=== PATIENT | male | born 2000 | race African-American/Black ===

== ENCOUNTER 2024-05-16 13:16 | Emergency (ER) | payer BC, SELFPAY ==
[2024-05-16 13:30] VITALS: BP 131/71; PULSE 86; RESP 20; TEMP 37; O2SAT 99; BMI 30.8
--- NOTE | 2024-05-16 13:34 | ED_ITS ---
HPI - General Adult General Chief complaint: Upper Respiratory Symptoms Stated complaint: throat irritation Time Seen by Provider: 05/16/24 16:08 Source: patient Mode of arrival: ambulatory Limitations: no limitations History of Present Illness ED Provider: POOL HPI narrative: 23 yo male with no PMH notes he has dry throat at night and it bothers him it feels like he has sandpaper he also feels like he has post nasal drip he has had this before but the past several days it has been much worse. MD complaint: dry mouth Onset (ago): week(s) (3+) Location: mouth Radiation: non-radiation Severity: mild Quality: burning Pain Consistency: intermittent Relieving factors: none Exacerbating factors: other (night time) Associated symptoms: other (3 weeks ago injured L ring finger had been wearing splint - has been working out with it in gym but notes he cannot make a fist now fully otherwise it is normal) Treatments prior to arrival: none Related Data Previous Rx's ?Medication ?Instructions ?Recorded cetirizine 10 mg tablet 10 mg PO DAILY PRN allergy 05/16/24 symptoms #30 tabs fluticasone propionate 50 1 spray intranasal DAILY #16 grams 05/16/24 mcg/actuation nasal spray,suspension Allergies Allergy/AdvReac Type Severity Reaction Status Date / Time No Known Allergies Allergy Verified 05/16/24 13:32 Review of Systems Review of Systems: Constitutional : No Fever, No Chills, No Fatigue ENT/Mouth : pos sore throat, No Rhinorrhea Eyes: No Eye Pain, No Swelling, No Redness Cardiovascular : No Chest Pain, No SOB, No Dyspnea on Exertion Respiratory : No Cough, No Sputum Gastrointestinal : No Nausea, No Vomiting, No Diarrhea, No abdominal Pain Genitourinary : No Dysuria, No Urinary Frequency, No Hematuria, Musculoskeletal : pos joint pain, No Myalgias, No Joint Swelling Skin : No Skin Lesions, No rash Neuro : No Weakness, No Numbness, No Dizziness, no Headache All other systems reviewed and are negative ON LICENSE OF [facility] Past Medical History Attestation statement: The following information was validated with the patient. Source: old records reviewed Social History Social History (Updated 05/16/24 @ 16:44 by Rhea Leos DO) Patient Tobacco Use Status: Never used Tobacco Advance Directives: No Advance Directives Information Provided: No Do you have a plan to hurt others: No Plan Physical Exam ED Vital Signs: Vital Signs - 24 hr 05/16/24 13:30 05/16/24 16:25 Temperature 98.6 F 98.6 F Pulse Rate 86 86 Respiratory Rate 20 20 Blood Pressure 131/71 131/71 Pulse Oximetry 99 99 Oxygen Delivery Method Room Air Room Air BMI result Body Mass Index 30.8 Appearance: Alert. Oriented X3. No acute distress. Eyes: Pupils equal, round and reactive to light. ENT: Pharynx normal. no erythema, swelling, exudates Neck: Normal inspection. Neck supple. CVS: Normal heart rate and rhythm. Pulses normal. Respiratory: No respiratory distress. Breath sounds normal. Abdomen: Soft and nontender. Skin: Skin warm and dry. Normal skin color. Extremities: No lower extremity edema. L ring finger on L hand mild swelling on PIP joint he has no pain can flex and extend but when he makes a fist it is not even Neuro: Oriented X 3. No motor deficit. No sensory deficit. CN2-12 intact Course Course Course Narrative: RME: 23-year-old male presents to ED for dry throat and coughing. Patient states he is at [employer] around him has cold. Patient states no chest pain coughing up blood or shortness of breath. SARs strep ordered. Lungs clear. Medical Decision Making Medical Decision Making [facility] Narrative: 23 yo male otherwise healthy here with c/o dry scratchy throat at night as well as post nasal drip. I am going to prescribe him medications for possible allergies. He has no signs of swelling or infection on exam. He also c/o 3 week L ring finger injury no acute pain now will need hand referral Differential Diagnosis Differential Diagnoses: The differential diagnosis associated with the presentation includes URI, allergies, rhinitis Lab Data [facility] Lab Attestation statement: I reviewed the patient's lab results. Labs: Lab Results 05/16/24 Range/Units 15:07 Influenza Type A (PCR) NEGATIVE (Negative) Influenza Type B (PCR) NEGATIVE (Negative) RSV RNA Qual (PCR) NEGATIVE (Negative) SARS-CoV-2 RNA (RT-PCR) NEGATIVE (Negative) S. pyogenes GrpA BRIGID Negative (Negative) Prescription Management I considered prescription management with: Other Discharge Plan Discharge Clinical Impression: Throat dryness Injury of left ring finger Qualifiers: Encounter type: initial encounter Qualified Code(s): S69.92XA - Unspecified injury of left wrist, hand and finger(s), initial encounter Patient Disposition: Home, Self-Care Instructions: Finger Sprain (ED), Allergies (ED) Additional Instructions: negative for COVID, flu, RSV, strep will start with nasal spray and claritin please follow up with hand surgeon here call for next available appointment Prescriptions: New fluticasone propionate 50 mcg/actuation spray,suspension 1 spray intranasal DAILY Qty: 16 1RF Rx Instructions: administer into each nostril cetirizine 10 mg tablet 10 mg PO DAILY PRN (Reason: allergy symptoms) Qty: 30 1RF [place] [facility] [place] Group] Interventions: ED Discharge Assessment Last Done: 05/16/24 16:25 Discharge Date/Time: 05/16/24 16:28 Print Language: Thai
[2024-05-16 15:33] LABS: IDNOW Serial# 58CA691E; Strep A Nucleic Acid Negative (Negative)
[2024-05-16 16:03] LABS: Influenza A PCR NEGATIVE (Negative); Influenza B PCR NEGATIVE (Negative); Resp Syncy Virus RNA Qual PCR NEGATIVE (Negative); SARS COV2 PCR INHOUSE NEGATIVE (Negative)
[2024-05-16 16:25] VITALS: BP 131/71; PULSE 86; RESP 20; TEMP 37; O2SAT 99
--- OUTSIDE RECORDS SUMMARY | 2024-05-16 16:29 | XMS_ITS | Clinical Summary ---
Author Organization [facility] Address [address] [place] [address] Care Team Providers Care Intelligence Senior Sergeant Name Role Phone Bao Domínguez Dhaval DE LA CRUZ Primary Care Provider [phone] Allergies Active Allergy Reactions Criticality Noted Date Comments Apple Juice Itching 05/29/2017 Itching in throat. Peanut-Containing Drug Products 10/09 Itching in throat Tree Extract 10/31/2014 Medications diphenhydrAMINE (BENADRYL) 12.5 mg/5 mL oral elixir Take 25 mg by mouth 4 (four) times daily as needed for Allergies. Active EPINEPHrine 0.3 MG/0.3ML SOAJIndications: Hx of food allergy Inject 0.3 mLs into the muscle as needed. Use as directed 2 each 2 8 Active loratadine (CLARITIN) 10 MG tabletIndication s:Seasonal allergic rhinitis, unspecified trigger 10 mg po qhs 30 tablet 1 9 Active fluticasone (FLONASE) 50 mcg/ACT nasal sprayIndications :Seasonal allergic rhinitis, unspecified trigger 1 spray each nares at bedtime 16 g 2 9 Active ketotifen (ZADITOR) 0.025 % ophthalmic solutionIndicati ons:Seasonal allergic rhinitis, unspecified trigger Place 1 drop into both eyes 2 (two) times daily. 5 mL 9 Active Emtricitabine-Te nofovir DF (TRUVADA) 200-300 mg per tabletIndication s:At risk for sexually transmitted disease due to partner with multiple partners Take 1 tablet by mouth once daily. 90 tablet 9 Active Ibuprofen (ADVIL,MOTRIN) 600 MG tablet Take 1 tablet by mouth every 6 (six) hours as needed for Pain. 30 tablet 4 Active Active Problems Problem Noted Date Diagnosed Date At risk for sexually transmi tted disease due to partner with multiple partners 06/01/2018 Resolved Problems Problem Noted Date Diagnosed Date Resolved Date Hx of lower gastrointestinal bleeding 05/14/2016 07/23/2016 Snoring 06/14/2014 05/29/2017 Immunizations Immunization Administration Dates Next Due DTaP(Infanrix) 1999,1999,1999 Hep A, Ped/adol, 3 Dose 12/16/2008 Hep B / HiB 1999,1999 Hepatitis A 12/08/2007 Hepatitis B 1999 Hib, Nos 1999 Hpv Nonavalent 01/19/2016,02/09/2015,10/31/2014 IPV 12/19/2003, 1,1999, 000 Influenza-split 01/18/2010,12/16/2008 MMR 12/19/2003,07/21/2000 Meningococcal Conj MCV4P (MENACTRA) 01/19/2016,0 06/14/2014 PPD Test 06/14/2014 Pneumococcal Conjugate 10/21/2000,02/25/2000 Tdap 01/01/2016,10/06/2010 Varicella(Varivax)SQ 03/18/2006,02/14/2005,07/21 Family History Medical History Relation Name Comments Heart disease Brother No Known Problem Father Asthma Maternal Grandfather Hypertension Maternal Grandmother Asthma Mother Hypertension Mother Asthma Paternal Grandmother Asthma Paternal Uncle Hypertension Sister Relation Name Status Comments Brother Father Maternal Grandfather Maternal Grandmother Mother Paternal Grandmother Paternal Uncle Sister Social History Tobacco Use Types Packs/Day Years Used Date Smoking Tobacco: Never Smokeless Tobacco: Never Tobacco Cessation:Counseling Given: No Alcohol Use Standard Drinks/Week Comments No 0 (1 standard drink = 0.6 oz pur e alcohol) Sex and Gender Information Value Date Recorded Sex Assigned at Not on file Legal Sex Male 1:43 AM EDT Gender Identity Not on file Sexual Orientation Not on file Last Filed Vital Signs Vital Sign Reading Time Taken Comments Blood Pressure 118/80 06/01/2018 5:47 PM EDT Pulse 76 06/01/2018 5:47 PM EDT Temperature 36.8 ??C (98.2 ??F) 06/01/2018 5:47 PM ED T Respiratory Rate 18 06/01/2018 5:47 PM EDT Oxygen Saturation 100% 04/03/2018 9:31 AM EST Inhaled Oxygen Concentration - - Weight 84.8 kg (187 lb) 06/01/2018 5:47 PM EDT Height 182.9 cm (6') 06/01/2018 5:47 PM EDT Body Mass Index 25.36 06/01/2018 5:47 PM EDT Plan of Treatment Health Maintenance Due Date Last Done Comments Asthma Action Plan 1999 Pt Self Management Plan Belkis caldera Review 06/22/2009 Health Related Social Needs 06/22/2017 DEPRESSION SCREENING (PHQ-2) 04/09/2019, 04/03/2018, 02/26/2018, Additional history exists Annual HIV Screening 06/02/2019 06/01/2018, 04/03/2018, 02/26/2018, Additional history exists COVID-19 Vaccine (3 2023-2 5 season) 2023 02/19/2022, 12/24/2021 Influenza Vaccine (#1) 2023 8 (Declined), 01/18/2010, 12/16/2008 DTaP,Tdap,and Td Vaccines (6 - Td or Tdap) 12/31/2025 01/01/2016, 10/06/2010, 1999, Additional history exists HPV Vaccines Completed 01/19/2016, 05/2014, 10/31/2014 Hepatitis C Testing Completed 06/01/2018, 9 Procedures Procedure Name Priority Date/Time Associated Diagnosis Comments HIV 1/2 AG/AB,4TH GEN RFL Routine 06/01/2018 6:24 PM EDT Unprotected sex HEPATITIS C Routine 06/01/2018 6:24 PM EDT Unprotected sex from Last 3 Months or Most Recently Relevant to Health Maintenance Results * HIV 1/2 AG/AB,4TH GEN RFL (06/01/2018 6:24 PM EDT) HIV AG/AB, 4th Gen Nonreactive Nonreactive [facility] Comment: ? HIV-1 antigen and HIV-1/HIV-2 antibodies were not detected. ? There is no laboratory evidence of HIV infection. ? PLEASE NOTE: This information has been disclosed to you ? from records whose confidentiality may be protected by ? state law. ??If your state requires such protection, then ? the state law prohibits you from making any further ? disclosure of the information without the specific ? written consent of the person to whom it pertains, or as ? otherwise permitted by law. ??A general authorization for ? the release of medical or other information is NOT ? sufficient for this purpose. ? The performance of this assay has not been clinically ? validated in patients less than 2 years old. ? For additional information please refer to ? http://education.dondeEsta™/faq/VMK541. ??(This ? link is being provided for informational/educational ? purposes only.) Urine specimen (specimen) 06/01/2018 6:24 PM EDT 06/02/2018 12:36 AM EDT Narrative Resulting Agency Comment Performing Organization Information: ?Site ID: [id number] ?Name: [facility] ?Address: [place] [address] ?Director: Bob Perez M.D. us Bao Domínguez DO LAB BLOOD ORDERABLES Final Res ult [facility] * Hepatitis C (06/01/2018 6:24 PM EDT) HCV RATIO 0.04 <1.0 [facility] Hepatitis C Ab Non Reactive Non Reactive [facility] Urine specimen (specimen) 06/01/2018 6:24 PM EDT 06/02/2018 12:36 AM EDT Narrative Resulting Agency Comment Performing Organization Information: ?Site ID: [id number] ?Name: [facility] ?Address: [place] [address] ?Director: Bob Perez M.D. us Bao Domínguez DO LAB BLOOD ORDERABLES Final Res ult [facility] from Last 3 Months or Most Recently Relevant to Health Maintenance Care Teams Intelligence Senior Sergeant Relationship Specialty Start Date End Date Bao Domínguez DO [address] [place] [address] PCP - General Family Medicine 04/03/18
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
--- OUTSIDE RECORDS SUMMARY | 2024-05-16 16:29 | XMS_ITS | Clinical Summary ---
Author Organization [facility] Address [address] [place] [address] Phone Care Team Providers Care Shiatsu Therapist Name Role Phone Pcp, Patient Does Not Have A BS Primary Care Pro vider Unavailable Allergies Active Allergy Reactions Criticality Noted Date Comments Apple Itching 11/01/2022 Itching in throat Peanut Itching 11/01/2022 Itching in throat Pineapple Other (See Comments) High 06/30/2020 Medications * This document contains information received from the source organization and may not represent a complete record from that organization. No known medications Active Problems Problem Noted Date Diagnosed Date Mild intermittent asthma without complication Assessment & Plan (11/08/2020 12:45 PM EDT): Asthma is improving with lifestyle modifications. The patient is experiencing no daytime asthma symptoms. He is experiencing no nighttime asthma symptoms. Discussed monitoring symptoms and use of quick-relief medications and contacting us early in the course of exacerbations. Warning signs of respiratory distress were reviewed with the patient. Reduce exposure to inhaled allergens: wash bedding weekly in water > 130'F to kill dust mites. 11/08/20: No excerbation during this inpatient stay. Health care maintenance 11/01/2020 Assessment & Plan (11/08/2020 12:40 PM EDT): Health care Maintenance: Pt with no significant medical issues; -Discussed benefit of optimal wellness. Daily required, nutrition, rest relaxation, adequate nightly sleep, safe sex practice Maintaining personal safety: avoiding fights, tobacco, alcohol and controlled substance abuse. Wellness health check-up aftercare compliance and medication adherence. Metabolic Risk Assessment: BMI 22.85, A1C, 5.8%, Lipid Panel 112/62/43/57 Cannabis use disorder, severe, dependence 2020 At risk for sexually transmi tted disease due to partner with multiple partners 06/01/2018 Assessment & Plan (11/01/2020 2:46 PM EDT): Pt reporting having multiple sex partners,with/without safe sex practice. Plan: Lab: HIV Testing, RPR, Urine STD test Pt Ed: safe sex practice. 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 Social History Tobacco Use Types Packs/Day Years Used Date Smoking Tobacco: Never Smokeless Tobacco: Never Tobacco Cessation:Counseling Given: Not Answered Alcohol Use Standard Drinks/Week Comments Not Currently 0 (1 standard drink = 0.6 oz pur e alcohol) Sex and Gender Information Value Date Recorded Sex Assigned at Male 05/30/2020 9:43 PM EDT Legal Sex Male 11:48 PM EST Gender Identity Male 05/30/2020 9:43 PM EDT Sexual Orientation Not on file Last Filed Vital Signs Vital Sign Reading Time Taken Comments Blood Pressure 130/95 11/01/2022 9:30 PM EDT Pulse 70 11/01/2022 9:30 PM EDT Temperature 36.8 ??C (98.2 ??F) 11/01/2022 9:30 PM ED T Respiratory Rate 19 11/01/2022 9:30 PM EDT Oxygen Saturation 100% 11/01/2022 9:53 PM EDT Inhaled Oxygen Concentration - - Weight 99.8 kg (220 lb) 11/01/2022 9:53 PM EDT Height 182.9 cm (6') 11/01/2022 9:53 PM EDT Body Mass Index 29.84 11/01/2022 9:53 PM EDT Plan of Treatment Health Maintenance Due Date Last Done Comments CHLAMYDIA & GONORRHEA SCREENING 06/02/2019 06/01/2018, 04/03/2018, 02/26/2018, Additional history exists A1C (SCREENING) 11/02/2021 11/02/2020 HIV SCREENING 11/02/2021 11/02/2020 COVID VACCINE ( season) 2023 02/19/2022, 12/24/2021 INFLUENZA VACCINE (#1) 2023 01/18/2010, 2008 TDAP/TD VACCINE 12/31/2025 01/01/2016, 10/06/2010 ZOSTER (SHINGRIX) VACCINE (1 of 2) 06/22/2049 HEPATITIS B VACCINE Completed 1999, 1999, 1999 PNEUMOCOCCAL VACCINE Aged Out 10/21/2000, 02/25/20 00 No longer eligible based on patient's age to complete this topic HUMAN PAPILLOMA VIRUS (HPV) VACCINE Completed 01/19/2016, 02/09/2015, 10/31/2014 HEPATITIS C SCREENING Completed 11/02/2020 , 06/01/2018, 04/03/2018 Procedures Procedure Name Priority Date/Time Associated Diagnosis Comments HEMOGLOBIN A1C Routine 11/02/2020 6:43 AM EDT HEPATITIS C ANTIBODY (SCREENING) Routine 11/02/2020 6:43 AM EDT HIV AG/AB SCREEN BY CMIA Routine 11/02/2020 6:43 AM EDT from Last 3 Months or Most Recently Relevant to Health Maintenance Results * HIV AG/AB Screen By CMIA (11/02/2020 6:43 AM EDT) HIV 1,2 AG/Ab by CMIA Non-React michael Non-React michael 11/02/2020 8:42 AM EDT [facility] Comment: This information has been disclosed to you from confidential records which are protected by state law. Disclosure of this information without patient written consent is a violation of [facility] public health laws 27F and 63.5.6. For more details and exceptions to this requirement of [facility] confidentiality law, please refer to health.sc.gov/diseases/aids/facts/helpfulresources/confidentiality law.htm. Whole blood unit collection (procedure) 11/02/2020 6:43 AM EDT 11/02/2020 7:00 AM EDT Narrative [facility] - 11/02/2020 8:42 AM EDT Specimen collected by: FELICITA PABLO Patient advised HIV testing to be done and did not object->Yes For negative diagnostic results, should this be released to [facility] immediately or delayed 7 days? Positive diagnostics and reflex tests will be delayed 7 days.->Immediate Patient advised HIV testing to be done and did not object->Yes For negative diagnostic results, should this be released to [facility] immediately or delayed 7 days? Positive diagnostics and reflex tests will be delayed 7 days.->Immediate [facility] LAB BLOOD ORDERABLES Final Resul t Performing Organization Address [facility] de Phone Number [facility]-[id number] [address] [place] [phone] * Hepatitis C Antibody (11/02/2020 6:43 AM EDT) Hepatitis C Ab Non-React michael Non-React michael 11/02/2020 7:43 AM EDT [facility] Comment: Results obtained with the Elecsys Anti-HCV assay may not be used interchangeably with values obtained with different manufacturers assay methods. A reactive anti-HCV result does not exclude co-infection by another hepatitis virus. Whole blood unit collection (procedure) 11/02/2020 6:43 AM EDT 11/02/2020 7:00 AM EDT Narrative [facility] - 11/02/2020 7:43 AM EDT Specimen collected by: FELICITA PABLO [facility] LAB BLOOD ORDERABLES Final Resul t Performing Organization Address [facility] de Phone Number [id number] [address] [place] [address] * (ABNORMAL) Hemoglobin A1C (11/02/2020 6:43 AM EDT) Hemoglobin A1C 5.8(H) 4.0 - 5.6 % 11/02/2020 6:05 PM EDT [facility] Comment: Method: Immunoassay ? Reference Range ?4.0-5.6% ? High risk (prediabetic) ?5.7-6.4% ? Diabetic, diagnostic ? >=6.5% ? ADA diabetic treatment goal ? <7.0% The Hemoglobin A1c testing is NGSP-certified. Reference ranges are based upon the 2010 recommendations of the [place] [employer]. ??Interpretation may vary for children and adolescents. Performed at: [facility] [address] [place] [address] ??[phone] Orderable--Hemoglobin X9S-ZUTT Whole blood unit collection (procedure) 11/02/2020 6:43 AM EDT 11/02/2020 7:[address] [facility] - 11/02/2020 6:05 PM EDT Specimen collected by: FELICITA PABLO Cathy Casarez ANP LAB BLOOD ORDERABLES Final Resul t [address] [address] from Last 3 Months or Most Recently Relevant to Health Maintenance Advance Directives For more information, please contact: [phone] (Available ) * Full Code (Latest Code Status on File) Date Activated Date Inactivated Comments 10/30/2020 11:23 PM 11/09/2020 5:48 PM Care Teams Shiatsu Therapist Relationship Specialty Start Date End Date Pcp, Patient Does Not Have A, BS [address] [place] [address] PCP - General Internal Medicine 10/19/20 Additional Source Comments Any HIV related-infromation that has been disclosed to you is from confidential records which are protected by state law. State law prohibits you from making any further disclosure of this HIV-related information without the specific written consent of the person to whom it pertains, or as otherwise permitted by law. Any unauthorized further disclosure in violation of state law may result in a fine or fpc sentence or both. A general authorization for the release of medical or other informationisNOT sufficient authorization for further disclosure.[facility]
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
--- OUTSIDE RECORDS SUMMARY | 2024-05-16 16:30 | XMS_ITS | Patient Health Record ---
Author Organization [facility] Address [address] [place] [address] Care Team Providers Care Brake Shoe Rebuilder Name Role Phone Barbra EISENBERG, Jean-Claude Primary Care Provider Un available Aga Morfin Unavailable [phone] Johnathan Chester Unavailable [phone] Reason For Referral No Information Medications Medication SIG (Take, Route, Fr equency, Duration) Notes Start Date End Date Status OLANZapine 2.5 MG 1 tablet Orally Once a day for 30 days Active Problems Problem Type SNOMED Code ICD Code Onset Dates Problem Status W/U Status Risk Notes Problem Cannabis abuse (55327705) Cannabis abuse (F12.10) Active confirmed Problem Schizophrenia (18715998) Schizophrenia (F20.9) Active confirmed Encounters Encounter Location Date Provider Diagnosis [facility] [place] [phone] 12/16/2023 Johnathan Chester Schizophrenia F20.9 and Cannabis abuse F12.10 [facility] [address] [address] 01/19/2024 Johnathan Chester Schizophrenia F20.9 and Cannabis abuse F12.10 [facility] [place] [phone] 02/11/2024 Johnathan Chester Schizophrenia F20.9 and Cannabis abuse F12.10 [facility] [address] [address] 03/17/2024 Johnathan Chester Schizophrenia F20.9 and Cannabis abuse F12.10 Assessments Encounter Date Diagnosis (ICD Code) Assessment Notes Treatment Notes Treatment Clinical Notes Section Notes 12/16/2023 Cannabis abuse (ICD-10 - F12.10) 12/16/2023 Schizophrenia (ICD-10 - F20.9) 01/19/2024 Schizophrenia (ICD-10 - F20.9) 02/11/2024 Schizophrenia (ICD-10 - F20.9) 03/17/2024 Schizophrenia (ICD-10 - F20.9) 03/17/2024 Cannabis abuse (ICD-10 - F12.10) 02/11/2024 Cannabis abuse (ICD-10 - F12.10) 01/19/2024 Cannabis abuse (ICD-10 - F12.10) Plan Of Treatment No Information Insurance Providers Payer Name Payer Address Payer Phone Subscriber Number Group Number Insured Name Patient Relationship to Insured Coverage Start Date Coverage End Date [employer] Health[employer] Medicaid [address] [address] [place] [address] [id number] LYNDA GARCÍA Self - patient is the insured
== END 2024-05-16 16:28 | disposition home or self-care (01) ==
LOC: HO.ED 16:27
PROVIDERS: Physician Assistant; Emergency Provider Emergency Medicine
DX: R09.82 Postnasal drip (principal); J39.2 Other diseases of pharynx; M79.645 Pain in left finger(s); Z03.818 Encounter for observation for suspected exposure to other biological agents ruled out; R05.9 Cough, unspecified
CPT/HCPCS: 0241U; 87651; 99282; 99283

== ENCOUNTER 2024-05-20 01:18 | Emergency (ER) | payer BC, SELFPAY ==
--- NOTE | ~2024-05-20 | XR_ITS ---
CLINICAL HISTORY: cough 2 view chest x-ray. Comparison: None Findings: No consolidation, pneumothorax, or effusion. Heart size normal. Impression: 1. No acute cardiopulmonary process. No focal pulmonary consolidation. This document has been electronically signed by: Noman Ricardo MD on 05/20/2024 03:34:53
[2024-05-20 01:52] VITALS: BP 126/87; PULSE 83; RESP 18; TEMP 36.9; O2SAT 99; BMI 35.3
[2024-05-20 02:46] LABS: Influenza A PCR NEGATIVE (Negative); Influenza B PCR NEGATIVE (Negative); Resp Syncy Virus RNA Qual PCR NEGATIVE (Negative); SARS COV2 PCR INHOUSE NEGATIVE (Negative)
--- OUTSIDE RECORDS SUMMARY | 2024-05-20 03:01 | XMS_ITS | Clinical Summary ---
Author Organization [facility] Address [address] [place] [place] [address] Care Team Providers Care Steam Pressure Chamber Operator Name Role Phone Bao Domínguez Dhaval DE LA CRUZ Primary Care Provider [phone] Allergies Active Allergy Reactions Criticality Noted Date [...] Review 06/22/2009 Health Related Social Needs 06/22/2017 Pneumococcal Vaccine: Pediat rics (0 to 5 Years) and At-Risk Patients (6 to 49 Years) (1 of 2 - PCV) 06/22/2018 10/21/2000, 02/25/2000 DEPRESSION SCREENING (PHQ-2) 04/09/2019, 04/03/2018, 02/26/2018, Additional history exists Annual HIV Screening 06/02/2019 06/01/2018, 04/03/2018, 02/26/2018, Additional history exists COVID-19 Vaccine (2023-2 5 season) 2023 02/19/2022, 12/24/2021 Influenza Vaccine [...] For additional information please refer to ? http://education.Alo7/faq/OXE311. ??(This ? link is being provided for informational/educational ? purposes only.) Urine specimen (specimen) 06/01/2018 6:24 PM EDT 06/02/2018 12:36 AM EDT Narrative Resulting Agency Comment Performing Organization Information: ?Site ID: TBR ?Name: [facility] ?Address: [place] [address] ?Director: Bob Perez M.D. us Bao Domínguez DO LAB BLOOD ORDERABLES Final Res ult Performing Organization Address City/[facility] Co de Phone Number [facility] * Hepatitis C (06/01/2018 6:24 PM EDT) HCV RATIO 0.04 <1.0 [facility] Hepatitis C Ab Non Reactive Non Reactive [facility] Urine specimen (specimen) 06/01/2018 6:24 PM EDT 06/02/2018 12:36 AM EDT Narrative Resulting Agency Comment Performing Organization Information: ?Site ID: TBR ?Name: [facility] ?Address: [place] [address] ?Director: Bob Perez M.D. us Bao Domínguez DO LAB BLOOD ORDERABLES Final Res ult Performing Organization Address City/[facility] Co de Phone Number [facility] from Last 3 Months or Most Recently Relevant to Health Maintenance Care Teams Steam Pressure Chamber Operator Relationship Specialty Start Date End Date Bao Domínguez DO [address] [place] [address] PCP - General Family Medicine 04/03/18
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
--- OUTSIDE RECORDS SUMMARY | 2024-05-20 03:01 | XMS_ITS | Patient Health Record ---
Author Organization [facility] Special[facility] Facility Address [address] [place] [address] Care Team Providers Care Boxing And Pressing Supervisor Name Role Phone Barbra EISENBERG, Jean-Claude Primary Care Provider Un available Aga Morfin Unavailable [phone] Johnathan Chester Unavailable [phone] Reason For Referral No Information Medications Medication SIG (Take, Route, Fr equency, Duration) Notes Start Date End Date Status OLANZapine 2.5 MG 1 tablet Orally Once a day for 30 days Active Problems Problem Type SNOMED Code ICD Code Onset Dates Problem Status W/U Status Risk Notes Problem Cannabis abuse (94589281) Cannabis abuse (F12.10) Active confirmed Problem Schizophrenia (90804532) Schizophrenia (F20.9) Active confirmed Encounters Encounter Location Date Provider Diagnosis [facility] [place] [phone] 12/16/2023 Johnathan Chester Schizophrenia F20.9 and Cannabis abuse F12.10 [facility] [address] [address] 01/19/2024 Johnathan Chester Schizophrenia F20.9 and Cannabis abuse F12.10 [facility] [place] [phone] 02/11/2024 Johnathan Chester Schizophrenia F20.9 and Cannabis abuse F12.10 [facility] [address] [address] 03/17/2024 Johnathan Chester Schizophrenia F20.9 and Cannabis [...] Date [employer] Medicaid [address] [address] [place] [address] [id number] LYNDA GARCÍA Self - patient is the insured
--- OUTSIDE RECORDS SUMMARY | 2024-05-20 03:01 | XMS_ITS | Clinical Summary ---
Author Organization [facility] Address [address] [place] [address] Phone Care Team Providers Care Waterworks Chief Engineer Name Role Phone Pcp, Patient Does Not [...] michael Non-React michael 11/02/2020 8:42 AM EDT [facility] Comment: This information has been disclosed to you from confidential records which are protected by state law. Disclosure of this information without patient written consent is a violation of [facility] public health laws 27F and 63.5.6. For more details and exceptions to this requirement of [facility] confidentiality law, please refer to health.vt.gov/diseases/aids/facts/helpfulresources/confidentiality law.htm. Whole blood unit collection (procedure) 11/02/2020 6:43 AM EDT 11/02/2020 7:00 AM EDT Narrative [facility] - 11/02/2020 8:42 AM EDT Specimen collected by: FELICITA PABLO Patient advised HIV testing to be done and did not object->Yes For negative diagnostic results, should this be released to [facility] immediately or delayed 7 days? Positive diagnostics and reflex tests will be delayed 7 days.->Immediate Patient advised HIV testing to be done and did not object->Yes For negative diagnostic results, should this be released to [facility] immediately or delayed 7 days? Positive diagnostics and reflex tests will be delayed 7 days.->Immediate [facility] LAB BLOOD ORDERABLES Final Resul t Performing Organization Address [facility] de Phone Number [facility]-[id number] [address] [place] [phone] * Hepatitis C Antibody (11/02/2020 6:43 AM EDT) Hepatitis C Ab Non-React michael Non-React michael 11/02/2020 7:43 AM EDT [facility] Comment: Results obtained with the Elecsys Anti-HCV assay may not be used interchangeably with values obtained with different manufacturers assay methods. A reactive anti-HCV result does not exclude co-infection by another hepatitis virus. Whole blood unit collection (procedure) 11/02/2020 6:43 AM EDT 11/02/2020 7:00 AM EDT Narrative [facility] - 11/02/2020 7:43 AM EDT Specimen collected by: FELICITA PABLO [facility] LAB BLOOD ORDERABLES Final Resul t Performing Organization Address [facility] de Phone Number [id number] [address] [place] [address] * (ABNORMAL) Hemoglobin A1C (11/02/2020 6:43 AM EDT) Hemoglobin A1C 5.8(H) 4.0 - 5.6 % 11/02/2020 6:05 PM EDT [facility] Comment: Method: Immunoassay ? Reference Range ?4.0-5.6% ? High risk (prediabetic) ?5.7-6.4% ? Diabetic, diagnostic ? >=6.5% ? ADA diabetic treatment goal ? <7.0% The Hemoglobin A1c testing is NGSP-certified. Reference ranges are based upon the 2010 recommendations of the [place] [employer]. ??Interpretation may vary for children and adolescents. Performed at: [facility] [address] [place] [address] ??[phone] Orderable--Hemoglobin [id number] Whole blood unit collection (procedure) 11/02/2020 6:43 AM EDT 11/02/2020 7:02 AM EDT Narrative [facility] [employer] [facility] - 11/02/2020 6:05 PM EDT Specimen collected by: FELICITA PABLO Cathy Casarez ANP LAB BLOOD ORDERABLES Final Resul t [address] [address] from Last 3 Months or Most Recently Relevant to Health Maintenance Advance Directives For more information, please contact: [phone] (Available ) * Full Code (Latest Code Status on File) Date Activated Date Inactivated Comments 10/30/2020 11:23 PM 11/09/2020 5:48 PM Care Teams Waterworks Chief Engineer Relationship Specialty Start Date End Date Pcp, Patient Does Not Have A, BS [address] [place] [address] PCP - General Internal Medicine 10/19/20 Additional [...] law may result in a fine or half-way sentence or both. A general authorization for the release of medical or other informationisNOT sufficient authorization for further disclosure.[facility]
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
[2024-05-20 03:15] LABS: IDNOW Serial# 6674DD1D; Strep A Nucleic Acid Negative (Negative)
[2024-05-20 05:55] VITALS: BP 121/82; PULSE 89; RESP 16; TEMP 37; O2SAT 97
[2024-05-20 06:48] VITALS: O2SAT 97
--- NOTE | 2024-05-20 06:56 | ECG_ITS ---
Test Reason : SHORTNESS OF BREATH Blood Pressure : */* mmHG Vent. Rate : 85 BPM Atrial Rate : 85 BPM P-R Int : 150 ms QRS Dur : 82 ms QT Int : 366 ms P-R-T Axes : 51 59 34 degrees QTcB Int : 435 ms Normal sinus rhythm Normal ECG No previous ECGs available Referred By: Maude Sharpe Electronically Signed By: KELLY HYDE
[2024-05-20 07:25] LABS: MANUAL DIFF FLAG NO
[2024-05-20 07:27] LABS: Basophils Percent Auto 0.5 % (0-2); Eosinophils Absolute Auto 0.2 X10*3/uL (0.0-0.4); Eosinophils Percent Auto 3.6 % (0-4); Hematocrit 38.4 % (42.0-52.0); Hemoglobin 12.7 g/dl (14.0-18.0); Imm Gran Abs Auto 0.01 X10*3/uL (0.00-0.03); Imm Gran Pct Auto 0.2 % (0.0-0.4); Lymphocytes Percent Auto 34.6 % (20-40); Mean Corpuscular HGB Conc 33.1 g/dl (31.0-36.0); Mean Corpuscular Hemoglobin 26.1 pg (27.0-33.0); Mean Platelet Volume 9.6 fL (9.4-12.4); Monocytes Absolute Auto 0.4 X10*3/uL (0.1-1.2); Monocytes Percent Auto 7.4 % (2-11); Neutrophils Absolute Auto 3.1 x10*3/uL (2.0-8.3); Neutrophils Percent Auto 53.7 % (45-73); Platelet Count 187 X10*3/uL (160-400); Red Blood Count 4.86 X10*6/uL (4.60-5.80); Red Cell Distribution Width 13.9 % (11.0-16.0); White Blood Count 5.8 X10*3/uL (4.8-10.8)
--- NOTE | 2024-05-20 07:28 | ED_ITS ---
HPI - General Adult General Chief complaint: Upper Respiratory Symptoms Stated complaint: pain in throat Time Seen by Provider: 05/20/24 06:33 Source: patient, RN notes reviewed and old records reviewed Mode of arrival: ambulatory History of Present Illness ED Provider: Maude Sharpe PA-C HPI narrative: 23-year-old male with no significant past medical history presenting to the ED complaining of intermittent episodes of dry cough, SOB, throat closing sensation x 4 days, worse at night. Reports ?syncopal episode last night, states went to bed however woke up on the floor, denies tongue biting or incontinence. Denies reported head trauma, headache, neck or back pain. denies CP, abdominal pain, nausea/ vomiting, travel, pedal edema. + Multiple sick contacts Related Data Previous Rx's ?Medication ?Instructions ?Recorded cetirizine 10 mg tablet 10 mg PO DAILY PRN allergy 05/16/24 symptoms #30 tabs fluticasone propionate 50 1 spray intranasal DAILY #16 grams 05/16/24 mcg/actuation nasal spray,suspension albuterol sulfate 90 mcg/actuation 2 puff inhalation Q4-6H PRN 05/20/24 aerosol inhaler shortness of breath or wheezing #6.7 grams benzonatate 100 mg capsule 100 mg PO TID PRN cough #14 caps 05/20/24 prednisone 20 mg tablet 40 mg (2 x 20 mg) PO DAILY 5 days 05/20/24 #10 tabs Allergies Allergy/AdvReac Type Severity Reaction Status Date / Time No Known Allergies Allergy Verified 05/20/24 01:53 Review of Systems 2 Review of Systems: Yes all other systems are reviewed and are negative Constitutional: Constitutional: Reports as per HPI Neurologic: Denies Abnormal speech present [facility] Past Medical History Attestation statement: The following information was validated with the patient. Source: old records reviewed Social History Social History Patient Tobacco Use Status: Never used Tobacco Advance Directives: No Advance Directives Information Provided: Yes Do you have a plan to hurt others: No Plan Physical Exam ED Vital Signs: Vital Signs - 24 hr 05/20/24 01:52 05/20/24 05:55 05/20/24 06:48 Temperature 98.4 F 98.6 F Pulse Rate 83 89 Respiratory Rate 18 16 Blood Pressure 126/87 121/82 Pulse Oximetry 99 97 97 Oxygen Delivery Method Room Air Room Air Room Air 05/20/24 07:54 05/20/24 07:55 05/20/24 07:55 Temperature Pulse Rate 70 82 86 Respiratory Rate Blood Pressure 111/67 112/70 118/75 Pulse Oximetry Oxygen Delivery Method 05/20/24 08:39 Temperature 97 F Pulse Rate 86 Respiratory Rate 16 Blood Pressure 118/75 Pulse Oximetry 98 Oxygen Delivery Method Room Air BMI result Body Mass Index 35.3 Const General: cooperative, healthy appearing and no acute distress Orientation/consciousness: patient oriented x3 Limitations: no limitations HENMT Head: Yes normal to inspection and Yes atraumatic Ears: hearing grossly normal bilaterally and external ears normal General nose exam: Normal external nose present Face and sinus: Yes normal facial exam Mouth: Normal oral and palatal mucosa present and no drooling Throat: Yes posterior oropharynx normal, Yes tonsils normal, Yes uvula midline, No peritonsillar mass, No uvula laterally displaced and No uvular edema Eyes General: appearance normal, both eyes and all related structures EOM: EOMs intact bilaterally Neck Neck: Yes normal visual inspection and Yes no meningeal signs Resp Effort & Inspection: normal respiratory effort, no respiratory distress and no stridor Auscultation: clear to auscultation bilaterally, no crackles, no rhonchi and no wheezes Cardio Rate: regular rate Heart sounds: S1 normal heart sound present and S2 normal heart sound present GI Inspection: Yes normal to inspection Palpation (GI): Soft to palpation, nontender, no guarding and not rigid Skin Rashes: no rashes Wounds: no wounds Neuro General: patient oriented x3, gait normal, tone normal, moves all extremities, no meningeal signs, no focal motor deficits and CN's II-XI intact bilaterally Cranial nerves: Yes CN's II-XII intact bilaterally and Yes Bilaterally intact EOM present Cognition (Neuro): normal cognition Speech: No Abnormal speech present Gait exam (Neuro): Normal gait present Motor exam (neuro): 5/5 motor strength present throughout and Pronator motor function not present Extrem General: Yes normal to inspection Course Course Course Narrative: -0105-- no leukocytosis. H/H stable. Labs otherwise reassuring including negative troponin - viral testing and rapid strep negative - CXR unremarkable - orthostatic vital signs negative Results discussed with patient including worrisome signs and symptoms and strict return precautions, and when to return to the emergency department. They verbalized understanding and feel safe for discharge at this time. Medical Decision Making Medical Decision Making [facility] Narrative: 23-year-old male with no significant past medical history presenting to the ED complaining of intermittent episodes of dry cough, SOB, throat closing sensation x 4 days, worse at night. Reports ?syncopal episode last night, states went to bed however woke up on the floor, denies tongue biting or incontinence. on exam vital signs stable, NAD, nontoxic appearing, no midline spinous tenderness. No focal neuro deficits, lungs CTA, oropharynx WNL. Concern for viral illness vs bronchitis. Rule out pneumonia. Concern for syncope vs seizure. Lower suspicion for ICH / fractures or DVT/ PE. Plan: EKG, labs, CXR, viral testing, orthostatics, re-evaluate Please refer to course for remaining clinical decision making, interpretation of labs/imaging results, and discussions with consultants and/or family members. Differential Diagnosis Differential Diagnoses: The differential diagnosis associated with the presentation includes As above Admission/Observation Consideration of admission/observation: Escalation of care including admission/observation considered Lab Data [facility] Lab Attestation statement: I reviewed the patient's lab results. 05/20/24 07:21 05/20/24 07:21 Labs: Lab Results 05/20/24 05/20/24 05/20/24 Range/Units 02:00 02:53 07:21 WBC 5.8 (4.8-10.8) X10*3/uL RBC 4.86 (4.60-5.80) X10*6/uL Hgb 12.7 L (14.0-18.0) g/dl Hct 38.4 L (42.0-52.0) % MCV 79.0 L (80.0-98.0) fL MCH 26.1 L (27.0-33.0) pg MCHC 33.1 (31.0-36.0) g/dl RDW 13.9 (11.0-16.0) % Plt Count 187 (160-400) X10*3/uL MPV 9.6 (9.4-12.4) fL Immature Gran % (Auto) 0.2 (0.0-0.4) % Neut % (Auto) 53.7 (45-73) % Lymph % (Auto) 34.6 (20-40) % Lake % (Auto) 7.4 (2-11) % Eos % (Auto) 3.6 (0-4) % Baso % (Auto) 0.5 (0-2) % Lymph # (Auto) 2.0 (1.2-4.9) X10*3/uL Lake # (Auto) 0.4 (0.1-1.2) X10*3/uL Eos # (Auto) 0.2 (0.0-0.4) X10*3/uL Baso # (Auto) 0.0 (0.0-0.2) X10*3/uL Abs Immat Gran (auto) 0.01 (0.00-0.03) X10*3/uL Absolute Neuts (auto) 3.1 (2.0-8.3) x10*3/uL Absolute Nucleated RBC 0.000 (0.0-0.012) X10*3/uL Nucleated RBC % (auto) 0.0 (0.0-0.2) /100WBC Sodium 140 (135-145) mmol/L Potassium 4.0 (3.3-5.1) mmol/L Chloride 108 (96-108) mmol/L Carbon Dioxide 25 (22-29) mmol/L Anion Gap 11 L (12-20) BUN 13 (9-16) mg/dL Creatinine 1.04 (0.5-1.4) mg/dL Estim Creat Clear Calc 145.2 Estimated GFR > 60 Random Glucose 96 (60-115) mg/dL Lactic Acid 0.7 (0.5-2.0) mmol/L Calcium 8.9 (8.4-10.2) mg/dL Magnesium 2.0 (1.6-2.6) mg/dL Total Bilirubin 0.2 (0.0-1.0) mg/dL Direct Bilirubin < 0.2 (0.0-0.5) mg/dL AST 30 (5-37) U/L ALT 18 (0-40) U/L Alkaline Phosphatase 70 (39-117) U/L Troponin I High Sens < 2.7 (<3.5-35.0) ng/L Total Protein 7.2 (6.5-8.0) g/dL Albumin 3.9 (3.5-5.0) g/dL Influenza Type A (PCR) NEGATIVE (Negative) Influenza Type B (PCR) NEGATIVE (Negative) RSV RNA Qual (PCR) NEGATIVE (Negative) SARS-CoV-2 RNA (RT-PCR) NEGATIVE (Negative) S. pyogenes GrpA BRIGID Negative (Negative) Independent Interpretation I performed an independent interpretation of an: EKG ( my interpretation EKG normal sinus rhythm rate of 85. NH interval 150. QTC 435. No STEMI.) and Plain X-Ray Radiology Impression Discussion of test interpretation with radiology: I have reviewed the radiologist's reading. External Record Review External record reviewed: Inpatient record, Office record, Outpatient record, Prior outpatient labs, Prior outpatient radiology, Primary care record and Outside ED record Tests considered The following testing was considered but not selected: As above Prescription Management I considered prescription management with: Pain Medication Chronic Conditions Patient?s care impacted by: Other Social Determinants Patient?s care significantly limited by Social Determinants of Health including: Other Social Determinant of Health Discharge Plan Discharge Clinical Impression: Bronchitis Patient Disposition: Home, Self-Care Instructions: Acute Bronchitis (ED) Additional Instructions: your blood work, viral testing, and x-ray are reassuring Kenton Mariee for cough, take as needed Use albuterol inhaler as needed for shortness of breath/ wheezing Prednisone as a steroid Please have close follow up with your primary care doctor We are unsure if you pass out or possibly had a seizure, please have close follow up with your primary care doctor, if you have recurrent episodes return to the ED immediately Prescriptions: New benzonatate 100 mg capsule 100 mg PO TID PRN (Reason: cough) Qty: 14 0RF albuterol sulfate 90 mcg/actuation HFA aerosol inhaler 2 puff inhalation Q4-6H PRN (Reason: shortness of breath or wheezing) Qty: 6.7 0RF prednisone 20 mg tablet 40 mg PO DAILY 5 Days Qty: 10 0RF No Action fluticasone propionate 50 mcg/actuation spray,suspension 1 spray intranasal DAILY Qty: 16 1RF Rx Instructions: administer into each nostril cetirizine 10 mg tablet 10 mg PO DAILY PRN (Reason: allergy symptoms) Qty: 30 1RF Referrals: Physician,Unknown J [Primary Care Provider] - Interventions: ED Discharge Assessment Last Done: 05/20/24 08:39 Discharge Date/Time: 05/20/24 08:39 Print Language: Malawian
[2024-05-20 07:45] LABS: Lactic Acid 0.7 mmol/L (0.5-2.0)
[2024-05-20 07:46] LABS: Alanine Aminotransferase 18 U/L (0-40); Albumin Level 3.9 g/dL (3.5-5.0); Alkaline Phosphatase 70 U/L (39-117); Anion Gap 11 (12-20); Aspartate Amino Transferase 30 U/L (5-37); Bilirubin Direct < 0.2 mg/dL (0.0-0.5); Bilirubin Total 0.2 mg/dL (0.0-1.0); Blood Urea Nitrogen 13 mg/dL (9-16); Calcium 8.9 mg/dL (8.4-10.2); Carbon Dioxide 25 mmol/L (22-29); Chloride 108 mmol/L (96-108); Creatinine Clr Calc Pharmacy 145.2; Estimated Glomerular Filt Rate > 60; Glucose Random 96 mg/dL (60-115); Sodium 140 mmol/L (135-145); Total Protein 7.2 g/dL (6.5-8.0)
[2024-05-20 07:54] VITALS: BP 111/67; PULSE 70
[2024-05-20 07:55] VITALS: BP 112/70; BP 118/75; PULSE 82; PULSE 86
[2024-05-20 07:59] LABS: Troponin-I High Sensitivity < 2.7 ng/L (<3.5-35.0)
[2024-05-20 08:39] VITALS: BP 118/75; PULSE 86; RESP 16; TEMP 36.1; O2SAT 98
== END 2024-05-20 08:39 | disposition home or self-care (01) ==
PROVIDERS: Physician Assistant; Emergency Provider Emergency Medicine
DX: J40 Bronchitis, not specified as acute or chronic (principal); R06.02 Shortness of breath; R05.9 Cough, unspecified; Z03.818 Encounter for observation for suspected exposure to other biological agents ruled out
CPT/HCPCS: 0241U; 36415; 71046; 80048; 80076; 83605; 83735; 84484; 85025; 87651; 93005; 99283; 99284

== ENCOUNTER → 2024-05-20 01:57 | Outpatient (BNV) | payer BC, SELFPAY | PROVIDERS: Visit Provider Radiology Diagnostic Radiology | DX: R05.9 Cough, unspecified (principal) | CPT/HCPCS: 71046 ==

== ENCOUNTER → 2024-05-20 06:56 | Outpatient (BNV) | payer BC, SELFPAY | PROVIDERS: Emergency Provider Emergency Medicine; Visit Provider Internal Medicine | DX: R06.02 Shortness of breath (principal) | CPT/HCPCS: 93010 ==

== ENCOUNTER 2024-05-24 16:32 | Emergency (ER) | payer BC, SELFPAY ==
--- NOTE | ~2024-05-24 | CT_ITS ---
CLINICAL HISTORY: fall, possible seizure like activity CT head without contrast Comparison: None Findings: No intra-axial mass, midline shift, hydrocephalus, or acute hemorrhage. No significant atrophy-like change or white matter disease. Left maxillary sinus moderate opacification with air-fluid level. Remainder of the paranasal sinuses and bilateral mastoid air cells are clear. The orbits are unremarkable. No skull fracture. IMPRESSION: 1. No acute intracranial findings specifically, no acute intracranial hemorrhage. 2. Moderate opacification of the left maxillary sinus with air-fluid level, may represent acute sinusitis. This document has been electronically signed by: Seth Guadalupe MD on 05/24/2024 19:31:50
--- NOTE | ~2024-05-24 | CT_ITS ---
CLINICAL HISTORY: cough, syncope CT angiography chest with contrast. 3D Postprocessing. Comparison: CR - XR CHEST 2V - 05/24/24 17:38 EDT CR - XR CHEST 2V - 05/20/24 02:03 EDT Findings: The heart size is normal. RV/LV ratio is normal. The thoracic aorta is normal caliber. No acute pulmonary embolus. The visualized thyroid and mediastinum are unremarkable. No consolidation or effusion. The upper abdomen is unremarkable. No acute fractures. IMPRESSION: 1. No pulmonary embolus. No acute aortic syndrome. 2. Lungs are clear. This document has been electronically signed by: Seth Guadalupe MD on 05/24/2024 19:36:04
--- NOTE | ~2024-05-24 | XR_ITS ---
CLINICAL HISTORY: cough 2 view chest x-ray Comparison: CR - XR CHEST 2V - 05/20/24 02:03 EDT Findings: No consolidation or effusion. Heart size is normal. No acute fracture. IMPRESSION: 1. No acute findings. This document has been electronically signed by: Clare Doan MD on 05/24/2024 18:28:12
[2024-05-24 16:40] VITALS: BP 160/100; PULSE 102; O2SAT 98
[2024-05-24 16:58] VITALS: BP 126/81; PULSE 78; RESP 16; TEMP 37; BMI 29.0
[2024-05-24 17:25] LABS: Basophils Percent Auto 0.1 % (0-2); Hematocrit 39.7 % (42.0-52.0); Hemoglobin 13.3 g/dl (14.0-18.0); Imm Gran Abs Auto 0.09 X10*3/uL (0.00-0.03); Imm Gran Pct Auto 0.7 % (0.0-0.4); Lymphocytes Absolute Auto 1.4 X10*3/uL (1.2-4.9); Lymphocytes Percent Auto 11.1 % (20-40); MANUAL DIFF FLAG NO; Mean Corpuscular HGB Conc 33.5 g/dl (31.0-36.0); Mean Corpuscular Hemoglobin 26.1 pg (27.0-33.0); Mean Platelet Volume 9.3 fL (9.4-12.4); Monocytes Absolute Auto 0.5 X10*3/uL (0.1-1.2); Neutrophils Absolute Auto 10.2 x10*3/uL (2.0-8.3); Neutrophils Percent Auto 84.1 % (45-73); Platelet Count 250 X10*3/uL (160-400); Red Blood Count 5.09 X10*6/uL (4.60-5.80); Red Cell Distribution Width 14.1 % (11.0-16.0); White Blood Count 12.1 X10*3/uL (4.8-10.8)
--- NOTE | 2024-05-24 17:32 | ECG_ITS ---
Test Reason : SYNCOPE Blood Pressure : */* mmHG Vent. Rate : 70 BPM Atrial Rate : 70 BPM P-R Int : 134 ms QRS Dur : 86 ms QT Int : 378 ms P-R-T Axes : 33 41 11 degrees QTcB Int : 408 ms Normal sinus rhythm Normal ECG When compared with ECG of 20-May-2024 07:13, ST no longer elevated in Inferior leads Referred By: Jarrett Alvarado Electronically Signed By: Juan Uribe
[2024-05-24 17:38] LABS: Alanine Aminotransferase 25 U/L (0-40); Albumin Level 4.2 g/dL (3.5-5.0); Alkaline Phosphatase 62 U/L (39-117); Anion Gap 10 (12-20); Aspartate Amino Transferase 22 U/L (5-37); Bilirubin Total 0.2 mg/dL (0.0-1.0); Blood Urea Nitrogen 12 mg/dL (9-16); Calcium 8.9 mg/dL (8.4-10.2); Carbon Dioxide 23 mmol/L (22-29); Chloride 109 mmol/L (96-108); Estimated Glomerular Filt Rate > 60; Glucose Random 116 mg/dL (60-115); Lactic Acid 1.1 mmol/L (0.5-2.0); Magnesium 1.8 mg/dL (1.6-2.6); Potassium 4.2 mmol/L (3.3-5.1); Sodium 138 mmol/L (135-145); Total Protein 7.6 g/dL (6.5-8.0)
[2024-05-24 18:07] LABS: D Dimer High Sensitivity 256 NG/ML
--- NOTE | 2024-05-24 18:14 | ED.GENADULT ---
HPI - General Adult General Chief complaint: Seizure Stated complaint: ?seizure w/ syncopal episode, + headstrike Time Seen by Provider: 05/24/24 17:13 Source: patient, EMS, RN notes reviewed and old records reviewed Mode of arrival: EMS Limitations: no limitations History of Present Illness ED Provider: Jenny HPI narrative: 23 year old male presents for evaluation of a syncopal episode. The patient has had a cough for about 2 weeks. He was seen and given a nasal spray and steroids with no improvement. He reports that he has a history of syncopal episodes. While coughing profusely he fell to the ground His friend was present and reported the patient was ?shaking. ? Unsure of how long he was in the ground but did not have been more than a few minutes He believes he was somewhat confused when he woke up Denies any headache, neck pain or chest pain. The patient does have redness to both eyes which she reports was from ?bursting blood vessels when I was coughing earlier in the week. ? He currently feels well. He has no history of seizure disorder Related Data Previous Rx's ?Medication ?Instructions ?Recorded cetirizine 10 mg tablet 10 mg PO DAILY PRN allergy 05/16/24 symptoms #30 tabs fluticasone propionate 50 1 spray intranasal DAILY #16 grams 05/16/24 mcg/actuation nasal spray,suspension albuterol sulfate 90 mcg/actuation 2 puff inhalation Q4-6H PRN 05/20/24 aerosol inhaler shortness of breath or wheezing #6.7 grams benzonatate 100 mg capsule 100 mg PO TID PRN cough #14 caps 05/20/24 prednisone 20 mg tablet 40 mg (2 x 20 mg) PO DAILY 5 days 05/20/24 #10 tabs azithromycin 250 mg tablet See Rx Instructions PO .COMPLEX #6 05/24/24 tabs Allergies Allergy/AdvReac Type Severity Reaction Status Date / Time No Known Allergies Allergy Verified 05/24/24 17:01 Review of Systems Constitutional: Constitutional: Denies body ache(s), Denies chills, Denies fever(s), Denies frequent falls and Denies headache(s) Eyes: Eyes: Denies blurry vision and Denies exophthalmos ENT: Denies vertigo, Denies dizziness and Denies headache(s) Cardiovascular: Cardiovascular: Denies chest pain, Reports syncope and Reports dyspnea Respiratory: Respiratory: Denies change in phlegm color, Denies chest congestion, Reports cough, Reports dyspnea and Reports wheezing Gastrointestinal: Gastrointestinal: Denies abdominal pain, Denies nausea and Denies vomiting Musculoskeletal: Musculoskeletal: Denies back pain Integumentary/Breasts: Skin/Breast: Denies rash Neurologic: Denies vertigo, Denies dizziness, Reports syncope, Denies frequent falls and Denies headache(s) Allergic/Immunologic: Allergic/Immunologic: Reports wheezing PMFSH Social History Social History Patient Tobacco Use Status: Never used Tobacco Advance Directives: No Advance Directives Information Provided: No Do you have a plan to hurt others: No Plan Physical Exam ED Vital Signs: Vital Signs - 24 hr 05/24/24 16:58 Temperature 98.6 F Pulse Rate 78 Respiratory Rate 16 Blood Pressure 126/81 Oxygen Delivery Method Room Air BMI result Body Mass Index 29.0 Const General: healthy appearing, comfortable, no acute distress, alert and awake Nutritional Appearance: well nourished Orientation/consciousness: patient oriented x3 HENMT Other: Bilateral subconjunctival hemorrhages Eyes Eyelids: Yes eyelids normal Sclerae: sclerae normal Corneas: corneas normal Pupils: Equal, round and reactive pupils present EOM: EOMs intact bilaterally Neck Other: Patient arrives in his C-collar which I removed. The patient has no neck pain, cervical spine tenderness. Resp Effort & Inspection: normal respiratory effort, able to speak in complete sentences, no audible wheezes and not labored Auscultation: clear to auscultation bilaterally Cardio Rate: regular rate Rhythm: regular rhythm GI Inspection: No distended Palpation (GI): Soft to palpation, not firm, nontender, no guarding and not rigid Skin General skin exam: elasticity normal Neuro General: patient oriented x3 Cranial nerves: Yes CN's II-XII intact bilaterally, Yes Equal, round and reactive pupils present and Yes Bilaterally intact EOM present Cognition (Neuro): normal cognition Extrem Other: Moving all extremities well without any obvious deformities Medications Administered Discontinued Medications Generic Name Dose Route Start Last Admin Trade Name Freq PRN Reason Stop Dose Admin Iohexol 65 ml 05/24/24 18:59 05/24/24 19:00 Iohexol 350 Mg/Ml 100 Ml Infus..Btl IV 05/24/24 19:00 65 ml ONCE ONE Administration Medical Decision Making Medical Decision Making [facility] Narrative: 23-year-old male presents for evaluation of what sounds like a syncope episode. It is unclear if he had a true seizure-like episode. He reports he had a coughing fit passed out, this is likely a vasovagal syncopal episode. The patient had cervical spine cleared with nexus criteria. Given that there was possibility for seizure-like activity I did order a CT scan of the brain. He has no neurologic deficits at this time. His labs show no concerning findings. With the exception of a D-dimer that was not negative at 254. We will get a CT angiography to rule out PE as this could have caused his syncopal episode and his persistent cough. Differential Diagnosis Differential Diagnoses: The differential diagnosis associated with the presentation includes Syncope Cough Bronchitis PE less likely Seizure-like disorder Vasovagal syncope Intracranial hemorrhage less likely Lab Data [facility] Lab Attestation statement: I reviewed the patient's lab results. Mild leukocytosis to 12.1 which could be related to recent prednisone use.. There is a mild anemia that is slightly improved from his labs from a couple of days ago. The patient does have a left shift, again consistent with the prednisone use versus viral illness. The D-dimer is 254. Chemistries without concerning abnormalities. Troponin negative. He rules out for ACS 05/24/24 17:19 05/24/24 17:19 Labs: Lab Results 05/24/24 05/24/24 Range/Units 17:19 17:53 WBC 12.1 H (4.8-10.8) X10*3/uL RBC 5.09 (4.60-5.80) X10*6/uL Hgb 13.3 L (14.0-18.0) g/dl Hct 39.7 L (42.0-52.0) % MCV 78.0 L (80.0-98.0) fL MCH 26.1 L (27.0-33.0) pg MCHC 33.5 (31.0-36.0) g/dl RDW 14.1 (11.0-16.0) % Plt Count 250 D (160-400) X10*3/uL MPV 9.3 L (9.4-12.4) fL Immature Gran % (Auto) 0.7 H (0.0-0.4) % Neut % (Auto) 84.1 H (45-73) % Lymph % (Auto) 11.1 L (20-40) % [place] % (Auto) 4.0 (2-11) % Eos % (Auto) 0.0 (0-4) % Baso % (Auto) 0.1 (0-2) % Lymph # (Auto) 1.4 (1.2-4.9) X10*3/uL [place] # (Auto) 0.5 (0.1-1.2) X10*3/uL Eos # (Auto) 0.0 (0.0-0.4) X10*3/uL Baso # (Auto) 0.0 (0.0-0.2) X10*3/uL Abs Immat Gran (auto) 0.09 H (0.00-0.03) X10*3/uL Absolute Neuts (auto) 10.2 H (2.0-8.3) x10*3/uL Absolute Nucleated RBC 0.000 (0.0-0.012) X10*3/uL Nucleated RBC % (auto) 0.0 (0.0-0.2) /100WBC D-Dimer High Sensitivty 256 NG/ML Sodium 138 (135-145) mmol/L Potassium 4.2 (3.3-5.1) mmol/L Chloride 109 H (96-108) mmol/L Carbon Dioxide 23 (22-29) mmol/L Anion Gap 10 L (12-20) BUN 12 (9-16) mg/dL Creatinine 0.89 (0.5-1.4) mg/dL Estim Creat Clear Calc 159.0 Estimated GFR > 60 Random Glucose 116 H (60-115) mg/dL Lactic Acid 1.1 (0.5-2.0) mmol/L Calcium 8.9 (8.4-10.2) mg/dL Magnesium 1.8 (1.6-2.6) mg/dL Total Bilirubin 0.2 (0.0-1.0) mg/dL AST 22 (5-37) U/L ALT 25 (0-40) U/L Alkaline Phosphatase 62 (39-117) U/L Troponin I High Sens < 2.7 (<3.5-35.0) ng/L Total Protein 7.6 (6.5-8.0) g/dL Albumin 4.2 (3.5-5.0) g/dL Independent Interpretation I performed an independent interpretation of an: EKG (Normal sinus rhythm with a rate of [address] segment change) Discharge Plan Discharge Clinical Impression: Syncope, Sinusitis Patient Disposition: Home, Self-Care Instructions: Sinusitis (ED), Syncope (ED) Additional Instructions: Your workup in the ER today was reassuring. You the CT scan of your head did not show any traumatic injuries but did show a sinus infection The CT scan of your chest was clear, no blood clots in your lungs for pneumonia Take azithromycin as prescribed for sinusitis Follow-up with your primary doctor, return for new or worsening symptoms Prescriptions: New azithromycin 250 mg tablet See Rx Instructions .ROUTE .COMPLEX Qty: 6 0RF Rx Instructions: For 250 mg dose pack: take 500 mg today (day 1), then 250 mg for 4 days (days 2-5) No Action fluticasone propionate 50 mcg/actuation spray,suspension 1 spray intranasal DAILY Qty: 16 1RF Rx Instructions: administer into each nostril cetirizine 10 mg tablet 10 mg PO DAILY PRN (Reason: allergy symptoms) Qty: 30 1RF benzonatate 100 mg capsule 100 mg PO TID PRN (Reason: cough) Qty: 14 0RF albuterol sulfate 90 mcg/actuation HFA aerosol inhaler 2 puff inhalation Q4-6H PRN (Reason: shortness of breath or wheezing) Qty: 6.7 0RF prednisone 20 mg tablet 40 mg PO DAILY 5 Days Qty: 10 0RF Stand Alone Forms: Work/School Release Print Language: Bengali
[2024-05-24 18:19] LABS: Troponin-I High Sensitivity < 2.7 ng/L (<3.5-35.0)
[2024-05-24] MEDS: iohexoL 350 MG/ML 100 ML INFUS..BTL 65 ML IV (19:00)
[2024-05-24 21:06] VITALS: BP 119/76; PULSE 79; RESP 16; TEMP 36.6; O2SAT 99
== END 2024-05-24 21:27 | disposition home or self-care (01) ==
PROVIDERS: Physician Assistant; Emergency Provider Emergency Medicine
DX: R55 Syncope and collapse (principal); J32.9 Chronic sinusitis, unspecified; R05.9 Cough, unspecified; R51.9 Headache, unspecified; Z79.899 Other long term (current) drug therapy
CPT/HCPCS: 36415; 70450; 71046; 71275; 80053; 83605; 83735; 84484; 85025; 85379; 93005; 99284; Q9967

== ENCOUNTER → 2024-05-24 17:32 | Outpatient (BNV) | payer BC, SELFPAY | PROVIDERS: Emergency Provider Emergency Medicine; Visit Provider Internal Medicine Cardiovascular Disease | DX: R55 Syncope and collapse (principal) | CPT/HCPCS: 93010 ==

== ENCOUNTER → 2024-05-24 17:32 | Outpatient (BNV) | payer BC, SELFPAY | PROVIDERS: Emergency Provider Emergency Medicine; Visit Provider Radiology Diagnostic Radiology | DX: R05.9 Cough, unspecified (principal); R55 Syncope and collapse | CPT/HCPCS: 70450; 71046; 71275 ==